=== PATIENT | male | born 1995 | race Caucasian/White ===

== ENCOUNTER 2017-03-10 12:41 | Emergency (ER) | payer MEDICAID ==
[~2017-03-10] VITALS: Ht 175.3 cm; Wt 52.2 kg
--- NOTE | 2017-03-10 12:50 | NUR ---
C/O RLQ ABDOMINAL PAIN, N/V/D X LAST NIGHT. AAO. IV LINE STARTED. CONNECTED TO MONITOR. VSS. SEEN BY . AWAITING FOR ORDER.
[2017-03-10] MEDS ORDERED: IV NS 0.9% 1,000 ML ONE (13:26)
[2017-03-10] MEDS ORDERED: MORPHINE SULFATE INJ 4 MG/ML DISP.SYRIN ONE ×2 (13:26→14:33)
[2017-03-10] MEDS ORDERED: ONDANSETRON HCL/PF 4 MG/2 ML VIAL ONE (13:27)
[2017-03-10 13:29] LABS: BASOPHILS # (AUTO) 0.8 /CMM (0.0-0.2); EOSINOPHILS # (AUTO) 0.1 /CMM (0.0-0.7); EOSINOPHILS % (AUTO) 0.5 % (0.0-6.0); HEMATOCRIT 47 % (39-51); HEMOGLOBIN 16.4 g/dL (13.5-17.5); LYMPHOCYTES # (AUTO) 0.7 /CMM (0.8-4.8); LYMPHOCYTES % (AUTO) 3.7 % (20.0-44.0); MEAN CORPUSCULAR HEMOGLOBIN 31 PG (26.0-33.0); MEAN CORPUSCULAR HGB CONC 35 g/dl (31.0-36.0); MEAN CORPUSCULAR VOLUME 88 fL (80-96); MONOCYTES # (AUTO) 1.1 /CMM (0.1-1.30); NEUTROPHILS # (AUTO) 16.2 /CMM (1.8-8.9); NEUTROPHILS % (AUTO) 85.8 % (43.0-81.0); PLATELET COUNT (AUTO) 282 /CMM (150-450); RDW COEFFICIENT OF VARIATION 11.9 (11.5-15.0); RED BLOOD CELL COUNT(AUTO) 5.32 MIL/uL (4.5-6.0); WHITE BLOOD COUNT (AUTO) 18.9 K/uL (4.3-11.0)
[2017-03-10] MEDS ORDERED: IV NS 0.9% 1,000 ML BAG IV ONE (13:30)
[2017-03-10] MEDS ORDERED: MORPHINE SULFATE INJ 2 MG/ML DISP.SYRIN IV ONE ×2 (13:30→14:30)
[2017-03-10] MEDS ORDERED: ONDANSETRON HCL/PF 4 MG/2 ML VIAL IVP ONE (13:30)
--- NOTE | 2017-03-10 13:30 | NUR ---
IV ACCESS STARTED, BLOOD DRAWN FOR LABS. PT MEDICATED ORDERED.
[2017-03-10 13:39] LABS: CALCIUM, SERUM 8.8 mg/dL (8.5-10.1); CREATININE 0.9 mg/dL (0.6-1.3); POTASSIUM 3.8 mmol/L (3.5-5.1)
[2017-03-10 13:43] LABS: PROTHROMBIN TIME 10.4 SECS (9.5-12.7)
[2017-03-10 13:44] LABS: BILIRUBIN,DIRECT 0.2 mg/dL (0.0-0.2); BILIRUBIN,TOTAL 1.9 mg/dL (0.2-1.0); TOTAL PROTEIN, SERUM 7.5 g/dL (6.4-8.2)
[2017-03-10] MEDS ORDERED: IOHEXOL-300 100 ML VIAL IV ONE (13:50)
[2017-03-10] MEDS ORDERED: IV NS 0.9% 250 ML IV ONE (13:50)
[2017-03-10] MEDS ORDERED: CT SWABBABLE VALVE TRANS SET 1 EA INFUS.SET MC ONE (13:50)
--- NOTE | 2017-03-10 15:30 | NUR ---
Patient discharged to home in stable condition. Ambulatory. Denies any pain. Denies N/V. Written and verbal after care instructions given. Patient verbalizes understanding of instruction. IV removed. Catheter intact and site benign. Pressure and 4x4 applied to site. No bleeding noted.
[2017-03-10 15:32] VITALS: BP 112/71
== END 2017-03-10 15:33 | disposition home or self-care (01) ==
LOC: ER 12:43
DX: R11.2 Nausea with vomiting, unspecified (principal); R19.7 Diarrhea, unspecified; K21.9 Gastro-esophageal reflux disease without esophagitis; K50.90 Crohn's disease, unspecified, without complications; F17.200 Nicotine dependence, unspecified, uncomplicated
CPT/HCPCS: 36415; 80048-TC; 80076-TC; 83690-TC; 85025-TC; 85730-TC; A4606; J2270; J2405; J7030; J7050; Q9967; Z7610

== ENCOUNTER 2017-08-21 20:07 | Emergency (ER) | payer MEDICAID, OTHER ==
[~2017-08-21] VITALS: Ht 175.3 cm; Wt 54.4 kg
--- NOTE | 2017-08-21 21:10 | NUR ---
Note vasiliy in EDM - 08/21/17 at 2305 by [email or web address] PT LEFT FOR CT.
--- NOTE | 2017-08-21 21:10 | NUR ---
PT PRESENTED TO THE ER WITH A C/O ABD PAIN AND BLOOD IN THE STOOL. PT AMBULATED TO BED NUMBER 4. PT IS AA&OX4
[2017-08-21 21:24] LABS: BASOPHILS # (AUTO) 0.1 /CMM (0.0-0.2); BASOPHILS % (AUTO) 0.5 % (0.0-2.0); EOSINOPHILS # (AUTO) 0.3 /CMM (0.0-0.7); HEMATOCRIT 43 % (39-51); HEMOGLOBIN 14.6 g/dL (13.5-17.5); LYMPHOCYTES # (AUTO) 1.9 /CMM (0.8-4.8); LYMPHOCYTES % (AUTO) 12.7 % (20.0-44.0); MEAN CORPUSCULAR HEMOGLOBIN 30 PG (26.0-33.0); MEAN CORPUSCULAR HGB CONC 34 g/dl (31.0-36.0); MEAN CORPUSCULAR VOLUME 89 fL (80-96); MONOCYTES # (AUTO) 1.9 /CMM (0.1-1.30); MONOCYTES % (AUTO) 12.6 % (2.0-12.0); NEUTROPHILS # (AUTO) 10.5 /CMM (1.8-8.9); NEUTROPHILS % (AUTO) 72.2 % (43.0-81.0); PLATELET COUNT (AUTO) 212 /CMM (150-450); RDW COEFFICIENT OF VARIATION 11.9 (11.5-15.0); RED BLOOD CELL COUNT(AUTO) 4.83 MIL/uL (4.5-6.0); WHITE BLOOD COUNT (AUTO) 14.7 K/uL (4.3-11.0)
[2017-08-21] MEDS ORDERED: IV NS 0.9% 1,000 ML BAG IV ONE (21:30)
[2017-08-21] MEDS ORDERED: ONDANSETRON HCL/PF 4 MG/2 ML VIAL IVP ONE (21:30)
[2017-08-21] MEDS ORDERED: HYDROMORPHONE INJ 2 MG/ML DISP.SYRIN IV ONE (21:30)
[2017-08-21] MEDS ORDERED: ONDANSETRON HCL/PF 4 MG/2 ML VIAL ONE (21:31)
[2017-08-21] MEDS ORDERED: HYDROMORPHONE INJ 2 MG/ML DISP.SYRIN ONE (21:32)
[2017-08-21 21:34] LABS: CALCIUM, SERUM 9.3 mg/dL (8.5-10.1); POTASSIUM 3.7 mmol/L (3.5-5.1)
--- NOTE | 2017-08-21 21:35 | NUR ---
PT RETURNED FROM CT.
[2017-08-21 21:38] LABS: INR 0.94 (0.87-1.13); PROTHROMBIN TIME 9.8 SECS (9.5-12.7)
[2017-08-21 21:40] LABS: ALBUMIN 3.9 g/dL (3.4-5.0); BILIRUBIN,DIRECT 0.2 mg/dL (0.0-0.2); BILIRUBIN,TOTAL 1.4 mg/dL (0.2-1.0); TOTAL PROTEIN, SERUM 7.8 g/dL (6.4-8.2)
[2017-08-21] MEDS ORDERED: IV NS 0.9% 250 ML IV ONE (22:37)
[2017-08-21] MEDS ORDERED: IOHEXOL-300 100 ML VIAL IV ONE (22:37)
--- NOTE | 2017-08-21 23:40 | NUR ---
PATIENT ASSIGNED TO TELE 112-2
--- NOTE | 2017-08-21 23:54 | NUR ---
IV removed. Catheter intact and site benign. Pressure and 4x4 applied to site. No bleeding noted. Patient discharged to home in stable condition. Written and verbal after care instructions given. Patient verbalizes understanding of instruction. PT REC'D A COPY OF ALL LABS, AND IMAGING RESULTS. PT AMBULATED OUT WITH A STEADY GAIT. VSS
[2017-08-22 00:14] VITALS: BP 110/65
== END 2017-08-21 23:54 | disposition home or self-care (01) ==
LOC: ER 20:12
DX: R10.84 Generalized abdominal pain (principal); K21.9 Gastro-esophageal reflux disease without esophagitis; K50.911 Crohn's disease, unspecified, with rectal bleeding; F17.200 Nicotine dependence, unspecified, uncomplicated
CPT/HCPCS: 36415; 74160; 80048; 80076; 83690; 85025; 85730; 96361; 96374; 96375; 99285; A4606; J1170; J2405; J7030; J7050; Q9967; Z7610

== ENCOUNTER 2017-11-19 20:06 | Emergency (ER) | payer OTHER ==
[~2017-11-19] VITALS: Ht 165.1 cm; Wt 63.5 kg
--- NOTE | 2017-11-19 20:10 | NUR ---
"MID ABD PAIN X2 HOURS", NAD NOTED, VSS, RESP EVEN AND UNLABORED, P"MID ABD PAIN X2 HOURS"T WAS PUT ON MONITOR. WAITING FOR MD WHEAT.
[2017-11-19] MEDS ORDERED: HYDROMORPHONE INJ 0.5 MG/0.5 ML SYRINGE ONE (20:48)
[2017-11-19] MEDS ORDERED: ONDANSETRON HCL/PF 4 MG/2 ML VIAL ONE (20:48)
[2017-11-19 20:51] LABS: BASOPHILS # (AUTO) 0.1 /CMM (0.0-0.2); BASOPHILS % (AUTO) 0.9 % (0.0-2.0); EOSINOPHILS # (AUTO) 0.3 /CMM (0.0-0.7); EOSINOPHILS % (AUTO) 2.9 % (0.0-6.0); HEMATOCRIT 47 % (39-51); HEMOGLOBIN 16.5 g/dL (13.5-17.5); LYMPHOCYTES # (AUTO) 3.1 /CMM (0.8-4.8); LYMPHOCYTES % (AUTO) 29.6 % (20.0-44.0); MEAN CORPUSCULAR HEMOGLOBIN 31 PG (26.0-33.0); MEAN CORPUSCULAR HGB CONC 35 g/dl (31.0-36.0); MEAN CORPUSCULAR VOLUME 89 fL (80-96); MONOCYTES # (AUTO) 0.9 /CMM (0.1-1.30); NEUTROPHILS # (AUTO) 5.9 /CMM (1.8-8.9); NEUTROPHILS % (AUTO) 57.6 % (43.0-81.0); PLATELET COUNT (AUTO) 268 /CMM (150-450); RED BLOOD CELL COUNT(AUTO) 5.27 MIL/uL (4.5-6.0); WHITE BLOOD COUNT (AUTO) 10.3 K/uL (4.3-11.0)
[2017-11-19] MEDS ORDERED: IV NS 0.9% 1,000 ML BAG IV ONE (21:00)
[2017-11-19] MEDS ORDERED: ONDANSETRON HCL/PF 4 MG/2 ML VIAL IVP ONE (21:00)
[2017-11-19] MEDS ORDERED: HYDROMORPHONE INJ 2 MG/ML DISP.SYRIN IV ONE (21:00)
[2017-11-19 21:03] LABS: CALCIUM, SERUM 9.5 mg/dL (8.5-10.1); CREATININE 0.9 mg/dL (0.6-1.3); POTASSIUM 3.6 mmol/L (3.5-5.1)
[2017-11-19 21:04] LABS: INR 0.92 (0.85-1.15)
[2017-11-19 21:08] LABS: ALBUMIN 4.4 g/dL (3.4-5.0); BILIRUBIN,DIRECT 0.1 mg/dL (0.0-0.2); BILIRUBIN,TOTAL 0.8 mg/dL (0.2-1.0); TOTAL PROTEIN, SERUM 8.9 g/dL (6.4-8.2)
[2017-11-19 21:16] LABS: APPEARANCE,URINE Clear (CLEAR); BILIRUBIN,URINE Negative (NEGATIVE); BLOOD, URINE Negative Ery/uL (NEGATIVE); COLOR,URINE Yellow (YELLOW); KETONES,URINE 15 (NEGATIVE); LEUKOCYTE ESTERASE ,URINE Negative (NEGATIVE); NITRITE, URINE Negative (NEGATIVE); PH,URINE 6.5 (5.0-8.0); PROTEIN,URINE Negative (NEGATIVE); UGLUCOSE Negative (NEGATIVE)
[2017-11-19 21:31] LABS: BACTERIA,URINE Few /HPF (None Seen); RBC,URINE NONE SEEN /HPF (0-2); SQUAMOUS EPITHELIAL CELL,UR Rare /HPF (None Seen); WBC,URINE NONE SEEN /HPF (0-3)
[2017-11-19 22:27] VITALS: BP 127/70
--- NOTE | 2017-11-19 22:40 | NUR ---
Patient discharged to home in stable condition. Written and verbal after care instructions given. Patient verbalizes understanding of instruction.IV removed. Catheter intact and site benign. Pressure and 4x4 applied to site. No bleeding noted. prescription given.
== END 2017-11-19 22:39 | disposition home or self-care (01) ==
LOC: ER 20:09
DX: R10.33 Periumbilical pain (principal); K21.9 Gastro-esophageal reflux disease without esophagitis; F17.200 Nicotine dependence, unspecified, uncomplicated; K50.90 Crohn's disease, unspecified, without complications
CPT/HCPCS: 36415; 80048; 80076; 81001; 83690; 85025; 85730; 96361; 96374; 96375; 99284; A4606; J2405; J7030; Z7610; 81000-TC

== ENCOUNTER 2018-12-14 16:00 | Inpatient (IN) | payer OTHER ==
[~2018-12-14] VITALS: Ht 177.8 cm; Wt 55.8 kg
--- NOTE | 2018-12-14 16:08 | NUR ---
C/O WORSENING RUQ AND LLQ ABDOMINAL PAIN AND DIARRHEA X 2 DAYS. HAS HX OF CROHN'S DISEASE, BUT "NEVER HAD PAIN LIKE THIS". PT IS AOX4, AMB, VSS, RR EVEN AND UNLABORED. NO ACUTE DISTRESS NOTED. SKIN INTACT AND READY FOR EVAL.
[2018-12-14] MEDS ORDERED: DICYCLOMINE HCL INJ 20 MG/2 ML AMPUL IM ONE ×2 (16:59→17:00)
[2018-12-14] MEDS ORDERED: HYDROMORPHONE 1 MG/1 ML DISP.SYRIN ONE ×2 (16:59→18:29)
[2018-12-14] MEDS ORDERED: ONDANSETRON HCL/PF 4 MG/2 ML VIAL ONE (16:59)
[2018-12-14] MEDS ORDERED: ONDANSETRON HCL/PF 4 MG/2 ML VIAL IV ONE (17:00)
[2018-12-14] MEDS ORDERED: IV NS 0.9% 1,000 ML BAG IV ONE (17:00)
[2018-12-14] MEDS ORDERED: HYDROMORPHONE 1 MG/1 ML DISP.SYRIN IV ONE ×2 (17:00→18:30)
[2018-12-14 17:32] LABS: BASOPHILS # (AUTO) 0.1 /CMM (0.0-0.2); BASOPHILS % (AUTO) 0.6 % (0.0-2.0); EOSINOPHILS % (AUTO) 1.9 % (0.0-6.0); HEMATOCRIT 44 % (39-51); HEMOGLOBIN 14.9 g/dL (13.5-17.5); LYMPHOCYTES # (AUTO) 2.7 /CMM (0.8-4.8); LYMPHOCYTES % (AUTO) 29.9 % (20.0-44.0); MEAN CORPUSCULAR HGB CONC 34 g/dl (31.0-36.0); MEAN CORPUSCULAR VOLUME 91 fL (80-96); MONOCYTES # (AUTO) 0.7 /CMM (0.1-1.30); MONOCYTES % (AUTO) 8.2 % (2.0-12.0); NEUTROPHILS # (AUTO) 5.3 /CMM (1.8-8.9); NEUTROPHILS % (AUTO) 59.4 % (43.0-81.0); PLATELET COUNT (AUTO) 264 /CMM (150-450); RED BLOOD CELL COUNT(AUTO) 4.81 MIL/uL (4.5-6.0)
[2018-12-14 17:39] LABS: CALCIUM, SERUM 9.1 mg/dL (8.5-10.1); CREATININE 0.9 mg/dL (0.6-1.3); POTASSIUM 3.9 mmol/L (3.5-5.1)
[2018-12-14 17:40] LABS: APPEARANCE,URINE Clear (CLEAR); BILIRUBIN,URINE Negative (NEGATIVE); BLOOD, URINE Negative Ery/uL (NEGATIVE); COLOR,URINE Yellow (YELLOW); KETONES,URINE Negative (NEGATIVE); LEUKOCYTE ESTERASE ,URINE Negative (NEGATIVE); NITRITE, URINE Negative (NEGATIVE); PH,URINE 8.5 (5.0-8.0); PROTEIN,URINE 100 mg/dl (NEGATIVE); UGLUCOSE Negative (NEGATIVE); UROBILINOGEN,URINE 0.2 EU/dL (0.2)
[2018-12-14 17:44] LABS: BILIRUBIN,DIRECT 0.1 mg/dL (0.0-0.2); BILIRUBIN,TOTAL 0.4 mg/dL (0.2-1.0); TOTAL PROTEIN, SERUM 7.5 g/dL (6.4-8.2)
[2018-12-14 17:57] LABS: BACTERIA,URINE Few /HPF (None Seen); RBC,URINE 0-2 /HPF (0-2); SQUAMOUS EPITHELIAL CELL,UR Few /HPF (None Seen); WBC,URINE 0-2 /HPF (0-3)
--- NOTE | 2018-12-14 17:57 | NUR ---
PT TAKEN TO CT VIA MIKE
--- NOTE | 2018-12-14 19:24 | NUR ---
PT RESTING COMFORTABLY IN BED WITH MOM AT BEDSIDE. NO COMPLAINTS AT THIS TIME. WILL CONT TO MONITOR.
[2018-12-14] MEDS ORDERED: ONDANSETRON HCL/PF 4 MG/2 ML VIAL IVP PRN (19:30)
[2018-12-14] MEDS ORDERED: MAG HYDROX/AL HYDROX/SIMETH 30 ML UDC PO PRN (19:30)
[2018-12-14] MEDS ORDERED: Z GUARD REMEDY 2 OZ OINT TP PRN (19:30)
[2018-12-14] MEDS ORDERED: MORPHINE SULFATE INJ 2 MG/ML DISP.SYRIN IV PRN (19:30)
[2018-12-14] MEDS ORDERED: ACETAMINOPHEN 325 MG TABLET PO PRN (19:30)
[2018-12-14] MEDS ORDERED: MAGNESIUM HYDROXIDE 30 ML UDC PO PRN (19:30)
--- NOTE | 2018-12-14 20:13 | NUR ---
REPORT GIVEN TO MEI CARRINGTON FOR 315-2 MS FOR EDUARDO
--- NOTE | 2018-12-14 20:25 | NUR ---
PT TRANSFERRED TO FLOOR VIA WC
--- NOTE | 2018-12-14 20:26 | NUR ---
MS SITE MONITOR NOTES Received patient from ER via wheelchair accompanied by 1 ER staff. Admitted to [facility] 315-1 due to Crohn's Flare under the service of NANCIE Chung. Assisted patient to bed comfortably. Patient preferred to remain on his casual clothes. Patient refused skin assessment at this time, claimed he has no skin issues. Kept on NPO as ordered. Patient refused NGT insertion at this time, no abdominal distention, no N/V noted at this time. NANCIE Chung notified, no order made at this time. Initiated IVF as ordered. Belongings inventory completed by DOMINICK Macias. Patient noted with severe LLQ abdominal pain 10/10 as claimed, patient noted guarding. Administered Morphine as ordered. Kept on bed comfortably. Call light at bed side. Inquiries answered with satisfaction. Will continue to monitor accordingly.
[2018-12-14 20:30] VITALS: BP 124/61
[2018-12-14] MEDS: IV D5/0.45 NACL 1,000 ML IV PRN (20:38)
--- NOTE | 2018-12-14 22:00 | NUR ---
MS RN NOTES Patient claimed generalized itchiness. No SOB and redness noted at this time. Notified TEACHER OF THE DEAF/HARD OF HEARING Cha with orders noted and carried. Patient seend by Dr. Albrecht at this time, orders noted and carried out. Will continue to monitor patient accordingly.
--- NOTE | 2018-12-14 22:15 | NUR ---
Per RN- Pt. refused NG tube.
[2018-12-14] MEDS ORDERED: diphenhydrAMINE HCL 25 MG CAPSULE PO ONE (22:30)
[2018-12-14] MEDS ORDERED: HYDROMORPHONE INJ 0.5 MG/0.5 ML SYRINGE IV PRN ×2 (22:30→23:00)
[2018-12-14] MEDS ORDERED: IBUPROFEN 800 MG TABLET PO PRN (23:00)
[2018-12-14] MEDS ORDERED: predniSONE 20 MG TABLET PO SCH (23:00)
[2018-12-14] MEDS ORDERED: METRONIDAZOLE 500MG/ NS 100ML 100 ML IV ONE (23:14)
[2018-12-14] MEDS ORDERED: ACETAMINOPHEN 650 MG/20.3 ML UDC NG SCH (23:15)
[2018-12-14] MEDS ORDERED: IBUPROFEN 800 MG TABLET PO SCH (23:15)
[2018-12-14] MEDS: predniSONE 20 MG TABLET PO SCH (23:22)
[2018-12-14] MEDS: GABAPENTIN 300 MG CAPSULE PO SCH (23:23)
[2018-12-14] MEDS ORDERED: CIPROFLOXACIN IV RTU 200 ML IV ONE (23:25)
[2018-12-14] MEDS: METRONIDAZOLE 500MG/ NS 100ML 500 MG in PREMIX 1 EA IV SCH (23:25)
[2018-12-14] MEDS: CIPROFLOXACIN IV RTU 400 MG in PREMIX 1 EA IV SCH (23:33)
[2018-12-14] MEDS: IBUPROFEN 400 MG TABLET PO SCH (23:41)
[2018-12-15] MEDS ORDERED: IBUPROFEN 400 MG TABLET PO SCH
[2018-12-15] MEDS ORDERED: HYDROMORPHONE 1 MG/1 ML DISP.SYRIN ONE (02:29)
[2018-12-15] MEDS ORDERED: METRONIDAZOLE 500MG/ NS 100ML 100 ML IV ONE (03:54)
[2018-12-15] MEDS: METRONIDAZOLE 500MG/ NS 100ML 500 MG in PREMIX 1 EA IV SCH ×3 (04:06→21:00)
[2018-12-15] MEDS: IBUPROFEN 400 MG TABLET PO SCH (04:35)
[2018-12-15] MEDS: predniSONE 20 MG TABLET PO SCH (04:36)
[2018-12-15] MEDS: GABAPENTIN 300 MG CAPSULE PO SCH ×3 (04:36→21:02)
[2018-12-15] MEDS ORDERED: ACETAMINOPHEN 325 MG TABLET PO SCH (05:00)
[2018-12-15] MEDS ORDERED: ACETAMINOPHEN 325 MG TABLET PO PRN (05:00)
[2018-12-15] MEDS: ACETAMINOPHEN 325 MG TABLET PO SCH ×3 (05:14→21:02)
--- NOTE | 2018-12-15 05:53 | NUR ---
MS RN NOTES Per CN, MRSA swab not done. Collected specimen sample accordingly. photo technologist on the floor notified specimen ready for pick up truck driver.
--- NOTE | 2018-12-15 06:43 | NUR ---
MS RN CLOSING NOTES Patient on bed intermittently asleep. Claimed pain is manageable with medications. All due meds given as ordered, monitored closely for ASE. All nursing needs attended, no new complaints made. Afebrile the whole shift, pt claimed no episode of diarrhea noted since admission. Kept on NPO except meds. Kept bed low and locked, call light at bedside. Endorsed to the next shift.
--- NOTE | 2018-12-15 07:10 | NUR ---
RN OPENING NOTES PATIENT IN STABLE CONDITION. A/OX3, ABLE TO MAKE NEEDS KNOWN. NOT IN ANY FORM OF DISTRESS, NO SOB. ABDOMINAL PAIN IS TOLERABLE AT THIS TIME, OFFERED PAIN MEDS BUT PATIENT SAID "ILL CALL YOU WHEN I NEED IT". IV ACCESS INTACT AND PATENT. KEPT PATIENT SAFE AND COMFORTABLE. BED IN LOW/LOCKED POSITION, SIDERAILS UPX2, CALL LIGHT IN REACH. WILL CONTINUE TO MONITOR ACCORDINGLY.
[2018-12-15 07:32] LABS: BASOPHILS % (AUTO) 0.1 % (0.0-2.0); EOSINOPHILS % (AUTO) 0.7 % (0.0-6.0); HEMATOCRIT 43 % (39-51); LYMPHOCYTES # (AUTO) 1.2 /CMM (0.8-4.8); LYMPHOCYTES % (AUTO) 14.7 % (20.0-44.0); MEAN CORPUSCULAR HGB CONC 35 g/dl (31.0-36.0); MEAN CORPUSCULAR VOLUME 91 fL (80-96); MONOCYTES # (AUTO) 0.3 /CMM (0.1-1.30); MONOCYTES % (AUTO) 3.6 % (2.0-12.0); NEUTROPHILS # (AUTO) 6.8 /CMM (1.8-8.9); NEUTROPHILS % (AUTO) 80.9 % (43.0-81.0); PLATELET COUNT (AUTO) 241 /CMM (150-450); RED BLOOD CELL COUNT(AUTO) 4.74 MIL/uL (4.5-6.0); WHITE BLOOD COUNT (AUTO) 8.4 K/uL (4.3-11.0)
[2018-12-15 07:38] LABS: CALCIUM, SERUM 8.8 mg/dL (8.5-10.1); CREATININE 0.8 mg/dL (0.6-1.3); MAGNESIUM 2.2 mg/dL (1.8-2.4); PHOSPHORUS 3.4 mg/dL (2.5-4.9); POTASSIUM 4.7 mmol/L (3.5-5.1)
[2018-12-15 07:43] LABS: THYROID STIMULATING HORMONE 1.149 uIU/mL (0.358-3.74)
[2018-12-15 08:00] VITALS: BP 106/59
[2018-12-15] MEDS: HYDROMORPHONE 1 MG/1 ML DISP.SYRIN IV PRN ×5 (08:22→22:13)
[2018-12-15] MEDS: ONDANSETRON HCL/PF 4 MG/2 ML VIAL IV PRN ×3 (08:27→23:16)
[2018-12-15] MEDS: NICOTINE PATCH (14MG) 14 MG PATCH.TD24 TD SCH (08:29)
[2018-12-15] MEDS: PANTOPRAZOLE 40 MG VIAL IV SCH (08:32)
[2018-12-15] MEDS: CIPROFLOXACIN IV RTU 400 MG in PREMIX 1 EA IV SCH ×2 (08:32→22:13)
[2018-12-15] MEDS ORDERED: BISACODYL (5 MG) 5 MG TABLET.DR PO PRN (10:30)
[2018-12-15] MEDS ORDERED: DIATR MEGLU/DIATRIZOATE SODIUM 120 ML BOTTLE (GASTROGRAPHIN) ONE (10:37)
[2018-12-15] MEDS: DOCUSATE SODIUM 250 MG CAPSULE PO SCH ×2 (10:49→17:22)
[2018-12-15] MEDS: POLYETHYLENE GLYCOL 3350 17 GM POWD.PACK PO SCH ×2 (10:49→21:01)
[2018-12-15] MEDS ORDERED: BARIUM SULFATE 98% 135 ML SUSP.RECON PO ONE (11:06)
[2018-12-15] MEDS: DICYCLOMINE HCL 10 MG CAPSULE PO SCH ×3 (12:33→23:08)
[2018-12-15 16:00] VITALS: BP 108/69
[2018-12-15] MEDS: IV D5/0.45 NACL 1,000 ML IV PRN (18:33)
--- NOTE | 2018-12-15 19:35 | NUR ---
RN CLOSING NOTES PATIENT IN STABLE CONDITION. ALL NEEDS ATTENDED AND PROVIDED. ALL DUE MEDICATIONS ADMINISTERED ORDERED. KEPT PATIENT SAFE AND COMFORTABLE. BED IN LOW/LOCKED POSITON, SIDERAIL UP X 2, CALL LIGHT IN REACH. ENDORSED TO NIGHT RN GIULIANA CLARK.
--- NOTE | 2018-12-15 19:35 | NUR ---
MS RN RECEIVE PT IN BED. A/O X 3. RESPIRATIONS EVEN AND UNLABORED, NO SOB NOTED, NO DISTRESS, SAFETY MEASURES IN PLACE. WILL CONTINUE TO MONITOR.
--- NOTE | 2018-12-15 19:49 | NUR ---
paged tano l[facility] pt requesting nausea meds per Jillian Langley give Reglan 5 mg IV q6 prn for nausea and vomiting read back and verified orders noted and carried out
[2018-12-15 20:00] VITALS: BP 122/76
[2018-12-15] MEDS: METOCLOPRAMIDE HCL 10 MG/2 ML VIAL IV PRN (20:06)
--- NOTE | 2018-12-16 01:42 | NUR ---
PAGED AND LEFT A MESSAGE TO JESS DONNELLY ABOUT PT'S SMALL BOWEL TROUGH RESULTS. AWAITING ORDERS.
[2018-12-16] MEDS: HYDROMORPHONE 1 MG/1 ML DISP.SYRIN IV PRN ×3 (01:49→08:46)
[2018-12-16] MEDS: DICYCLOMINE HCL 10 MG CAPSULE PO SCH ×2 (05:16→11:24)
[2018-12-16] MEDS: ACETAMINOPHEN 325 MG TABLET PO SCH ×2 (05:16→12:31)
[2018-12-16] MEDS: GABAPENTIN 300 MG CAPSULE PO SCH ×2 (05:16→12:31)
[2018-12-16] MEDS: METRONIDAZOLE 500MG/ NS 100ML 500 MG in PREMIX 1 EA IV SCH ×3 (05:16→12:35)
[2018-12-16] MEDS: METOCLOPRAMIDE HCL 10 MG/2 ML VIAL IV PRN (05:27)
--- NOTE | 2018-12-16 06:36 | NUR ---
RN CLOSING NOTE ASLEEP AND EASILY AWAKEN. RESPIRATIONS EVEN AND UNLABORED. NOT IN DISTRESS, STABLE. NEEDS ATTENDED AND ANTICIPATED, KEPT CLEAN AND DRY AND COMFORT. NURSING CARE RENDERED, SAFETY MEASURES IN PLACE, BED IN LOW LOCKED POSITION, CALL LIGHT WITHIN EASY REACH. ENDORSE TO NEXT SHIFT CONTINUITY OF CARE.
--- NOTE | 2018-12-16 07:36 | NUR ---
MS RN OPENING NOTE RECEIVED PT IN BED, RESTING WITH EYES CLOSED AND EASILY AROUSABLE. PT IS A/O X4, DENIES CHEST PAIN, SOB. PT STATES HE FEELS NAUSEA AND HAS ABD PAIN DESPITE REGLAN AND DILAUDID ADMINISTRATION AT APPROXIMATELY 0530 FROM SURGICAL FIRST ASSISTANT NURSE. PT IS ALSO REQUESTING A DIET ORDER SO THAT HE CAN EAT. INFORMED PT THAT THE NURSE WILL REVIEW PRN MEDICATIONS AND CONTACT GI TEAM REGARDING DIET ORDER. PT VERBALIZED AGREEMENT AND UNDERSTANDING. RIGHT FA #22G IV IS INFUSING ORDERED WITHOUT REDNESS OR SWELLING. ALL NEEDS ATTENDED TO. BED IS LOCKED AND IN LOWEST POSITION, SIDE RAILS UP X2, CALL LIGHT AND POSSESSIONS WITHIN REACH.
[2018-12-16 08:00] VITALS: BP 114/67
[2018-12-16 08:00] LABS: BASOPHILS % (AUTO) 0.3 % (0.0-2.0); EOSINOPHILS % (AUTO) 1.5 % (0.0-6.0); HEMATOCRIT 42 % (39-51); HEMOGLOBIN 14.5 g/dL (13.5-17.5); LYMPHOCYTES # (AUTO) 2.6 /CMM (0.8-4.8); MEAN CORPUSCULAR HGB CONC 35 g/dl (31.0-36.0); MEAN CORPUSCULAR VOLUME 90 fL (80-96); MONOCYTES # (AUTO) 0.9 /CMM (0.1-1.30); MONOCYTES % (AUTO) 11.2 % (2.0-12.0); NEUTROPHILS # (AUTO) 4.3 /CMM (1.8-8.9); PLATELET COUNT (AUTO) 231 /CMM (150-450); RED BLOOD CELL COUNT(AUTO) 4.66 MIL/uL (4.5-6.0)
--- NOTE | 2018-12-16 08:02 | NUR ---
MS RN NOTE CONTACTED JESS Coker NP REGARDING DIET ORDER. AWAITING RESPONSE.
[2018-12-16 08:21] LABS: CALCIUM, SERUM 8.8 mg/dL (8.5-10.1); MAGNESIUM 1.9 mg/dL (1.8-2.4); PHOSPHORUS 4.8 mg/dL (2.5-4.9); POTASSIUM 3.4 mmol/L (3.5-5.1)
[2018-12-16] MEDS: DOCUSATE SODIUM 250 MG CAPSULE PO SCH (08:44)
[2018-12-16] MEDS: NICOTINE PATCH (14MG) 14 MG PATCH.TD24 TD SCH (08:44)
[2018-12-16] MEDS: PANTOPRAZOLE 40 MG VIAL IV SCH (08:44)
[2018-12-16] MEDS: CIPROFLOXACIN IV RTU 400 MG in PREMIX 1 EA IV SCH (08:45)
[2018-12-16] MEDS: ONDANSETRON HCL/PF 4 MG/2 ML VIAL IV PRN (08:56)
[2018-12-16] MEDS ORDERED: predniSONE 20 MG TABLET PO SCH (09:00)
[2018-12-16] MEDS ORDERED: POTASSIUM CHLORIDE 20 MEQ TAB.PRT.SR PO SCH (11:00)
--- NOTE | 2018-12-16 13:00 | NUR ---
MS ELECTRICIAN SOUND NOTE PT DISCHARGE HOME VIA PRIVATE CAR IN MEDICALLY STABLE CONDITION. ACCOMPANIED BY MOTHER PERLA. PT IS A/OX4, DENIES CHEST PAIN, SOB, N/V. BREATHING IS EVEN AND UNLABORED ON ROOM AIR. RIGHT FA PERIPHERAL IV REMOVED WITH CATHETER TIP INTACT. DISCHARGE PAPERWORK AND EDUCATION PROVIDED PER PROTOCOL. INFORMED PT AND MOTHER TO CALL 911 OR RETURN TO THE NEAREST ER FOR CHEST PAIN, SOB, UNILATERAL CALF SWELLING, TEMPERATURE THAT DOES NOT GO DOWN WITH TYLENOL ADMINISTRATION, OR REOCCURRENCE OF CHIEF COMPLAINT. DISCUSSED DR DISCHARGE RECOMMENDATION TO FOLLOW UP WITH PRIMARY CARE PROVIDER AND TAKE MEDICATIONS PRESCRIBED. PER PT HE HAS A FOLLOW UP APPOINTMENT WITH HIS PRIMARY CARE PROVIDER SCHEDULED FOR THIS COMING THURSDAY, December. PROVIDED PRESCRIPTION FOR MEDICATIONS AND DISCUSSED ADMINISTRATION, SIDE EFFECTS, INTERACTIONS PER PROTOCOL. PT AND MOTHER VERBALIZED UNDERSTANDING. ALL BELONGINGS ACCOUNTED FOR AND BELONGINGS LIST SIGNED AND PLACED IN CHART. THE NURSE STORE MANAGER ACCOMPANIED THE PT AND MOTHER TO THE MAIN LOBBY WITHOUT INCIDENT.
== END 2018-12-16 13:00 | disposition home or self-care (01) | DRG 245 ==
LOC: ER 16:01 → MED 20:04
PROVIDERS: ADMIT Registered Nurse; ATTEND Registered Nurse
DX: K50.90 Crohn's disease, unspecified, without complications (principal); K56.7 Ileus, unspecified; F17.200 Nicotine dependence, unspecified, uncomplicated; K21.9 Gastro-esophageal reflux disease without esophagitis; I10 Essential (primary) hypertension
CPT/HCPCS: 36415; 74250-TC; 76700-TC; 80048-TC; 80061-TC; 80076-TC; 81000-TC; 83735-TC; 84100-TC; 84443-TC; 85025-TC; 85652-TC; 85730-TC; 86140-TC; 87081-TC; A4216; C9113; G0378; J0500; J0744; J1170; J2270; J2405; J2765; J3490; J7030; Q0163; Q9963

== ENCOUNTER 2019-04-17 11:15 | Emergency (ER) | payer OTHER ==
[~2019-04-17] VITALS: Ht 177.8 cm; Wt 51.7 kg
--- NOTE | 2019-04-17 11:24 | NUR ---
BIB DAD C/O NAUSEA, VOMITING AND ABDOMINAL PAIN SINCE LAST NIGHT. STATES HE HAD BLOOD IN VOMIT, ALSO HAVING MIGRAINE AND SOME DIARRHEA. VOMIT X 3 TODAY, UNABLE TO CARLA FOOD/FLUIDS. C/O GENERALIZED BODY PAIN. NAD NOTED. AOX4, VSS, RR EVEN AND UNLABORED ON RA. DAD AT BEDSIDE. READY FOR EVAL.
[2019-04-17] MEDS ORDERED: HYDROMORPHONE 1 MG/1 ML DISP.SYRIN ONE (11:35)
[2019-04-17] MEDS ORDERED: ONDANSETRON HCL/PF 4 MG/2 ML VIAL ONE (11:35)
[2019-04-17 11:47] LABS: BASOPHILS % (AUTO) 0.2 % (0.0-2.0); HEMATOCRIT 43 % (39-51); HEMOGLOBIN 14.5 g/dL (13.5-17.5); LYMPHOCYTES # (AUTO) 0.7 /CMM (0.8-4.8); LYMPHOCYTES % (AUTO) 3.4 % (20.0-44.0); MEAN CORPUSCULAR HGB CONC 34 g/dl (31.0-36.0); MEAN CORPUSCULAR VOLUME 91 fL (80-96); NEUTROPHILS # (AUTO) 19.1 /CMM (1.8-8.9); NEUTROPHILS % (AUTO) 87.4 % (43.0-81.0); PLATELET COUNT (AUTO) 206 /CMM (150-450); RED BLOOD CELL COUNT(AUTO) 4.67 MIL/uL (4.5-6.0); WHITE BLOOD COUNT (AUTO) 21.8 K/uL (4.3-11.0)
[2019-04-17 11:54] LABS: CALCIUM, SERUM 9.2 mg/dL (8.5-10.1); CREATININE 0.9 mg/dL (0.6-1.3); POTASSIUM 3.8 mmol/L (3.5-5.1)
--- NOTE | 2019-04-17 11:55 | NUR ---
IV ACCESS OBTAINED, BLOOD DRAWN, MEDS GIVEN AND IVF INFUSING. WILL CONT TO MONITOR.
[2019-04-17 12:00] LABS: ALBUMIN 4.3 g/dL (3.4-5.0); BILIRUBIN,DIRECT 0.2 mg/dL (0.0-0.2); BILIRUBIN,TOTAL 1.3 mg/dL (0.2-1.0); TOTAL PROTEIN, SERUM 8.1 g/dL (6.4-8.2)
[2019-04-17] MEDS ORDERED: ONDANSETRON HCL/PF 4 MG/2 ML VIAL IVP ONE (12:00)
[2019-04-17] MEDS ORDERED: IV NS 0.9% 1,000 ML BAG IV ONE (12:00)
[2019-04-17] MEDS ORDERED: HYDROMORPHONE INJ 2 MG/ML DISP.SYRIN IV ONE (12:00)
--- NOTE | 2019-04-17 12:13 | NUR ---
PT ON MONITOR. URINE COLLECTED AND SENT TO STAT LAB
[2019-04-17] MEDS ORDERED: CT SWABBABLE VALVE TRANS SET 1 EA INFUS.SET MC ONE (12:15)
[2019-04-17] MEDS ORDERED: IOHEXOL-300 100 ML VIAL IV ONE (12:15)
[2019-04-17] MEDS ORDERED: IV NS 0.9% 250 ML IV ONE (12:16)
--- NOTE | 2019-04-17 12:21 | NUR ---
PT TAKEN TO RADIOLOGY VIA
[2019-04-17 12:22] LABS: APPEARANCE,URINE Clear (CLEAR); BILIRUBIN,URINE SMALL (NEGATIVE); BLOOD, URINE Negative Ery/uL (NEGATIVE); COLOR,URINE Yellow (YELLOW); KETONES,URINE >=160 (NEGATIVE); LEUKOCYTE ESTERASE ,URINE Negative (NEGATIVE); NITRITE, URINE Negative (NEGATIVE); PROTEIN,URINE 100 mg/dl (NEGATIVE); UGLUCOSE Negative (NEGATIVE)
[2019-04-17 12:23] LABS: BACTERIA,URINE Rare /HPF (None Seen); RBC,URINE 0-2 /HPF (0-2); SQUAMOUS EPITHELIAL CELL,UR Few /HPF (None Seen); WBC,URINE 0-2 /HPF (0-3)
--- NOTE | 2019-04-17 12:32 | NUR ---
PT BACK FROM RADIOLOGY. CARLA WELL. WILL CONT TO MONITOR.
--- NOTE | 2019-04-17 13:16 | NUR ---
IV removed. Catheter intact and site benign. Pressure and 4x4 applied to site. No bleeding noted.Patient discharged to home in stable condition. Written and verbal after care instructions given. Patient verbalizes understanding of instruction.
[2019-04-17 13:19] VITALS: BP 114/70
[2019-04-17] MEDS ORDERED: HYDROMORPHONE INJ 0.5 MG/0.5 ML SYRINGE IV ONE (13:30)
== END 2019-04-17 13:20 | disposition home or self-care (01) ==
LOC: ER 11:16
DX: R10.84 Generalized abdominal pain (principal); R11.2 Nausea with vomiting, unspecified; K21.9 Gastro-esophageal reflux disease without esophagitis; F17.200 Nicotine dependence, unspecified, uncomplicated; Z60.2 Problems related to living alone; Z88.6 Allergy status to analgesic agent
CPT/HCPCS: 36415; 74177; 80048; 80076; 81001; 83690; 85025; 96361; 96374; 96375; 99284; J1170; J2405; J7030; J7050; Q9967; 81000-TC

== ENCOUNTER 2019-04-17 19:31 | Emergency (ER) | payer OTHER ==
[~2019-04-17] VITALS: Ht 177.8 cm; Wt 52.2 kg
--- NOTE | 2019-04-17 20:02 | NUR ---
BIBF. C/O "ABD PAIN X2 DAYS, +N/V +DIARRHEA, SEEN TODAY AM HERE. GIVEN TYLENOL, NOT HELPING FEVER" AOX4. AMBULATORY. PT VSS.
[2019-04-17 20:10] LABS: APPEARANCE,URINE Clear (CLEAR); BILIRUBIN,URINE SMALL (NEGATIVE); BLOOD, URINE Trace-intact Ery/uL (NEGATIVE); COLOR,URINE Yellow (YELLOW); KETONES,URINE >=160 (NEGATIVE); LEUKOCYTE ESTERASE ,URINE Negative (NEGATIVE); NITRITE, URINE Negative (NEGATIVE); PROTEIN,URINE 100 mg/dl (NEGATIVE); UGLUCOSE Negative (NEGATIVE); UROBILINOGEN,URINE 0.2 EU/dL (0.2)
[2019-04-17] MEDS ORDERED: ONDANSETRON HCL/PF 4 MG/2 ML VIAL ONE (20:14)
[2019-04-17 20:17] LABS: BASOPHILS % (AUTO) 0.1 % (0.0-2.0); EOSINOPHILS % (AUTO) 0.1 % (0.0-6.0); HEMATOCRIT 42 % (39-51); HEMOGLOBIN 14.1 g/dL (13.5-17.5); LYMPHOCYTES # (AUTO) 0.8 /CMM (0.8-4.8); LYMPHOCYTES % (AUTO) 4.4 % (20.0-44.0); MEAN CORPUSCULAR HGB CONC 34 g/dl (31.0-36.0); MEAN CORPUSCULAR VOLUME 93 fL (80-96); MONOCYTES # (AUTO) 2.1 /CMM (0.1-1.30); MONOCYTES % (AUTO) 11.2 % (2.0-12.0); NEUTROPHILS # (AUTO) 15.7 /CMM (1.8-8.9); NEUTROPHILS % (AUTO) 84.2 % (43.0-81.0); PLATELET COUNT (AUTO) 203 /CMM (150-450); RED BLOOD CELL COUNT(AUTO) 4.51 MIL/uL (4.5-6.0); WHITE BLOOD COUNT (AUTO) 18.7 K/uL (4.3-11.0)
[2019-04-17] MEDS ORDERED: HYDROMORPHONE 1 MG/1 ML DISP.SYRIN ONE ×2 (20:21→21:53)
[2019-04-17 20:24] LABS: BACTERIA,URINE Few /HPF (None Seen); RBC,URINE 0-2 /HPF (0-2); SQUAMOUS EPITHELIAL CELL,UR Few /HPF (None Seen); WBC,URINE 0-2 /HPF (0-3)
[2019-04-17 20:26] LABS: CALCIUM, SERUM 8.9 mg/dL (8.5-10.1); POTASSIUM 3.6 mmol/L (3.5-5.1)
[2019-04-17 20:32] LABS: ALBUMIN 3.9 g/dL (3.4-5.0); BILIRUBIN,DIRECT 0.2 mg/dL (0.0-0.2); BILIRUBIN,TOTAL 1.3 mg/dL (0.2-1.0); TOTAL PROTEIN, SERUM 7.6 g/dL (6.4-8.2)
[2019-04-17] MEDS: IV NS 0.9% 1,000 ML BAG IV ONE (20:33)
[2019-04-17] MEDS: ONDANSETRON HCL/PF 4 MG/2 ML VIAL IVP ONE (20:33)
[2019-04-17] MEDS: HYDROMORPHONE 1 MG/1 ML DISP.SYRIN IV ONE (20:34)
[2019-04-17] MEDS ORDERED: DEXAMETHASONE SOD PHOSPHATE 10 MG/ML VIAL ONE (21:53)
[2019-04-17] MEDS ORDERED: ACETAMINOPHEN ES 500 MG TABLET ONE (21:53)
[2019-04-17] MEDS: HYDROMORPHONE INJ 2 MG/ML DISP.SYRIN IV ONE (22:01)
[2019-04-17] MEDS: DEXAMETHASONE SOD PHOSPHATE 10 MG/ML VIAL IV ONE (22:01)
[2019-04-17] MEDS: ACETAMINOPHEN ES 500 MG TABLET PO ONE (22:01)
[2019-04-17] MEDS ORDERED: IBUPROFEN 600 MG TABLET PO ONE (22:29)
[2019-04-17] MEDS: IBUPROFEN 600 MG TABLET PO ONE (22:55)
[2019-04-17 22:56] VITALS: BP 129/81
== END 2019-04-17 22:59 | disposition home or self-care (01) ==
LOC: ER 19:32
DX: J02.0 Streptococcal pharyngitis (principal); R11.2 Nausea with vomiting, unspecified; R10.84 Generalized abdominal pain; R10.11 Right upper quadrant pain; K21.9 Gastro-esophageal reflux disease without esophagitis; F17.200 Nicotine dependence, unspecified, uncomplicated; Z88.6 Allergy status to analgesic agent; Z60.2 Problems related to living alone
CPT/HCPCS: 36415; 80048; 80076; 81001; 83690; 85025; 85652; 86140; 87070; 87880; 96361; 96374; 96375; 96376; 99283; J1100; J1170 ×2; J2405; J7030; 81000-TC; 86403-TC

== ENCOUNTER 2019-11-07 10:33 | Emergency (ER) | payer OTHER ==
[~2019-11-07] VITALS: Ht 177.8 cm; Wt 54.4 kg
--- NOTE | 2019-11-07 11:00 | NUR ---
patient came in to the er c/o ruq abdominal pain r/t r flank since last night. nausea, vomited x 1 today. On room air, breathing evenly and unlabored. connected to the monitor and pulse ox. kept comfortable will continue to monitor accordingly.
--- NOTE | 2019-11-07 11:26 | NUR ---
DR TIAN AT BEDSIDE FOR EVAL.
[2019-11-07] MEDS ORDERED: HYDROMORPHONE 1 MG/1 ML DISP.SYRIN ONE ×2 (11:29→13:26)
[2019-11-07] MEDS ORDERED: ONDANSETRON HCL/PF 4 MG/2 ML VIAL ONE (11:29)
[2019-11-07] MEDS ORDERED: HYDROMORPHONE INJ 0.5 MG/0.5 ML SYRINGE IV ONE ×2 (11:30→13:30)
[2019-11-07] MEDS ORDERED: ONDANSETRON HCL/PF 4 MG/2 ML VIAL IVP ONE (11:30)
[2019-11-07] MEDS ORDERED: IV NS 0.9% 1,000 ML BAG IV ONE (11:30)
[2019-11-07 11:39] LABS: BASOPHILS % (AUTO) 0.3 % (0.0-2.0); EOSINOPHILS % (AUTO) 1.6 % (0.0-6.0); HEMATOCRIT 45 % (39-51); HEMOGLOBIN 15.4 g/dL (13.5-17.5); LYMPHOCYTES % (AUTO) 26.9 % (20.0-44.0); MEAN CORPUSCULAR HGB CONC 34 g/dl (31.0-36.0); MEAN CORPUSCULAR VOLUME 91 fL (80-96); MONOCYTES # (AUTO) 0.9 /CMM (0.1-1.30); MONOCYTES % (AUTO) 11.5 % (2.0-12.0); NEUTROPHILS # (AUTO) 4.5 /CMM (1.8-8.9); NEUTROPHILS % (AUTO) 59.7 % (43.0-81.0); PLATELET COUNT (AUTO) 268 /CMM (150-450); RED BLOOD CELL COUNT(AUTO) 4.96 MIL/uL (4.5-6.0); WHITE BLOOD COUNT (AUTO) 7.6 K/uL (4.3-11.0)
[2019-11-07 11:53] LABS: CALCIUM, SERUM 9.2 mg/dL (8.5-10.1); CREATININE 0.7 mg/dL (0.6-1.3); POTASSIUM 3.7 mmol/L (3.5-5.1)
[2019-11-07 12:08] LABS: ALBUMIN 4.4 g/dL (3.4-5.0); BILIRUBIN,DIRECT 0.1 mg/dL (0.0-0.2); BILIRUBIN,TOTAL 0.9 mg/dL (0.2-1.0)
[2019-11-07] MEDS ORDERED: KETOROLAC TROMETHAMINE INJ 30 MG/ML VIAL ONE (13:25)
[2019-11-07] MEDS ORDERED: KETOROLAC TROMETHAMINE INJ 30 MG/ML VIAL IV ONE (13:30)
[2019-11-07 13:37] LABS: APPEARANCE,URINE Clear (CLEAR); BILIRUBIN,URINE Negative (NEGATIVE); BLOOD, URINE Negative Ery/uL (NEGATIVE); COLOR,URINE Yellow (YELLOW); KETONES,URINE Negative (NEGATIVE); LEUKOCYTE ESTERASE ,URINE Negative (NEGATIVE); NITRITE, URINE Negative (NEGATIVE); PROTEIN,URINE Negative (NEGATIVE); UGLUCOSE Negative (NEGATIVE); UROBILINOGEN,URINE 0.2 EU/dL (0.2)
[2019-11-07 14:39] VITALS: BP 132/76
--- NOTE | 2019-11-07 14:39 | NUR ---
Patient discharged to home in stable condition. Written and verbal after care instructions given. Patient verbalizes understanding of instruction.IV removed. Catheter intact and site benign. Pressure and 4x4 applied to site. No bleeding noted.
== END 2019-11-07 14:40 | disposition home or self-care (01) ==
LOC: ER 10:39
DX: K50.90 Crohn's disease, unspecified, without complications (principal); R10.31 Right lower quadrant pain; K21.9 Gastro-esophageal reflux disease without esophagitis; F17.200 Nicotine dependence, unspecified, uncomplicated; R11.10 Vomiting, unspecified; Z88.6 Allergy status to analgesic agent; Z60.2 Problems related to living alone
CPT/HCPCS: 36415; 74176; 80048; 80076; 81001; 83690; 85025; 96361; 96374; 96375; 96376; 99284; J1885; J2405; J7030; 81000-TC; J1170

== ENCOUNTER 2020-07-17 12:55 | Emergency (ER) | payer OTHER ==
[~2020-07-17] VITALS: Ht 177.8 cm; Wt 56.7 kg
[2020-07-17 13:06] VITALS: BP 117/72
--- NOTE | 2020-07-17 13:26 | NUR ---
Patient discharged to home in stable condition. Written and verbal after care instructions given. Patient verbalizes understanding of instruction.
== END 2020-07-17 13:28 | disposition home or self-care (01) ==
LOC: ER 12:58
DX: K11.5 Sialolithiasis (principal); K21.9 Gastro-esophageal reflux disease without esophagitis; F17.200 Nicotine dependence, unspecified, uncomplicated; Z88.6 Allergy status to analgesic agent; Z60.2 Problems related to living alone

== ENCOUNTER 2020-09-15 19:40 | Emergency (ER) | payer OTHER ==
[~2020-09-15] VITALS: Ht 177.8 cm; Wt 59.0 kg
--- NOTE | 2020-09-15 21:41 | NUR ---
TO ER BED 3 AMBULATORY.
--- NOTE | 2020-09-15 21:50 | NUR ---
PT BIBSELF C/O SWELLING ON NECK WHILE EATING PT STATES HE HAS A HISTORY OF SALIVARY STONE CAUSING DIFFICULTY SWALLOWING. PT O2 SAT 100% ROOM AIR. PT ALSO C/O ABDOMINAL CRAMPING WITH NAUSEA, VOMITTING, DIARRHEA. PT AAOX4. AMBULATORY WITH STEADY GAIT. VITAL SIGNS STABLE. NO ACUTE DISTRESS NOTED AT THIS TIME. WILL CONTINUE TO MONITOR
[2020-09-15] MEDS ORDERED: ONDANSETRON HCL/PF 4 MG/2 ML VIAL ONE (22:10)
[2020-09-15] MEDS ORDERED: KETOROLAC TROMETHAMINE INJ 30 MG/ML VIAL ONE (22:10)
--- NOTE | 2020-09-15 22:14 | NUR ---
IV INITIATED RAC 18G. LABS DRAWN FROM SITE. BUSINESS DEVELOPMENT EXECUTIVE AT BEDSIDE FOR COLLECTION. IV INTACT AND PATENT, PLACED ON SALINE LOCK
[2020-09-15 22:18] LABS: BASOPHILS # (AUTO) 0.1 /CMM (0.0-0.2); BASOPHILS % (AUTO) 0.8 % (0.0-2.0); EOSINOPHILS % (AUTO) 1.9 % (0.0-6.0); HEMATOCRIT 45 % (39-51); HEMOGLOBIN 15.1 g/dL (13.5-17.5); LYMPHOCYTES # (AUTO) 3.2 /CMM (0.8-4.8); LYMPHOCYTES % (AUTO) 27.6 % (20.0-44.0); MEAN CORPUSCULAR HGB CONC 33 g/dl (31.0-36.0); MEAN CORPUSCULAR VOLUME 94 fL (80-96); MONOCYTES # (AUTO) 1.3 /CMM (0.1-1.30); MONOCYTES % (AUTO) 11.3 % (2.0-12.0); NEUTROPHILS # (AUTO) 6.8 /CMM (1.8-8.9); NEUTROPHILS % (AUTO) 58.4 % (43.0-81.0); PLATELET COUNT (AUTO) 253 /CMM (150-450); RED BLOOD CELL COUNT(AUTO) 4.81 MIL/uL (4.5-6.0); WHITE BLOOD COUNT (AUTO) 11.6 K/uL (4.3-11.0)
[2020-09-15] MEDS ORDERED: IOHEXOL-300 100 ML VIAL IV ONE (22:26)
[2020-09-15] MEDS ORDERED: IV NS 0.9% 250 ML IV ONE (22:27)
[2020-09-15 22:29] LABS: CALCIUM, SERUM 9.4 mg/dL (8.5-10.1); CREATININE 0.9 mg/dL (0.6-1.3); POTASSIUM 3.8 mmol/L (3.5-5.1)
[2020-09-15] MEDS ORDERED: ONDANSETRON HCL/PF 4 MG/2 ML VIAL IVP ONE (22:30)
[2020-09-15] MEDS ORDERED: KETOROLAC TROMETHAMINE INJ 30 MG/ML VIAL IV ONE (22:30)
[2020-09-15 22:36] LABS: ALBUMIN 4.1 g/dL (3.4-5.0); BILIRUBIN,DIRECT 0.1 mg/dL (0.0-0.2); BILIRUBIN,TOTAL 0.5 mg/dL (0.2-1.0); TOTAL PROTEIN, SERUM 7.8 g/dL (6.4-8.2)
--- NOTE | 2020-09-15 22:46 | NUR ---
PT BROUGHT BY RADIOLOGY TO CT
[2020-09-15] MEDS ORDERED: TRAMADOL HCL 50 MG TABLET PO ONE (23:30)
[2020-09-15] MEDS ORDERED: METOCLOPRAMIDE HCL 10 MG/2 ML VIAL IV ONE (23:30)
[2020-09-15] MEDS ORDERED: TRAMADOL HCL 50 MG TABLET ONE (23:47)
[2020-09-15] MEDS ORDERED: METOCLOPRAMIDE HCL 10 MG/2 ML VIAL ONE (23:47)
--- NOTE | 2020-09-16 00:13 | NUR ---
Patient discharged to home in stable condition. Written and verbal after care instructions given. Patient verbalizes understanding of instruction.IV removed. Catheter intact and site benign. Pressure and 4x4 applied to site. No bleeding noted.Pt ambulatory with a steady gait. Pt instructed not to drive, verbalized understanding and was picked up by father.
[2020-09-16 00:15] VITALS: BP 134/77
== END 2020-09-16 00:15 | disposition home or self-care (01) ==
LOC: ER 19:44
DX: K11.5 Sialolithiasis (principal); K21.9 Gastro-esophageal reflux disease without esophagitis; Z98.890 Other specified postprocedural states; Z88.5 Allergy status to narcotic agent; Z60.2 Problems related to living alone
CPT/HCPCS: 36415; 70487; 80048; 80076; 85025; 96374; 96375; 99285; J1885; J2405; J2765; J7050; Q9967

== ENCOUNTER 2022-03-04 11:56 | Emergency (ER) | payer OTHER ==
[~2022-03-04] VITALS: Ht 175.3 cm; Wt 54.4 kg
--- NOTE | 2022-03-04 13:03 | NUR ---
THE PATIENT IS TAKEN TO CT
--- NOTE | 2022-03-04 13:15 | NUR ---
The patient bibs for abdominal pain x 3 days, with black tarry stools - for 3 days. c/O N/V. Will continue to monitor the patient.
--- NOTE | 2022-03-04 13:24 | NUR ---
THE PATIENT IS BACK FROM CT
--- NOTE | 2022-03-04 13:30 | NUR ---
IV ESTABLIHSED L UPPER ARM 18G. LABS DRAWN AND COLLECTED AT BEDSIDE.
[2022-03-04] MEDS ORDERED: ONDANSETRON HCL/PF 4 MG/2 ML VIAL ONE (13:40)
[2022-03-04] MEDS ORDERED: KETOROLAC TROMETHAMINE INJ 30 MG/ML VIAL ONE (13:41)
[2022-03-04 13:46] LABS: BASOPHILS % (AUTO) 0.3 % (0.0-2.0); EOSINOPHILS % (AUTO) 1.3 % (0.0-6.0); HEMATOCRIT 43 % (39-51); HEMOGLOBIN 14.5 g/dL (13.5-17.5); LYMPHOCYTES # (AUTO) 1.4 K/uL (0.8-4.8); LYMPHOCYTES % (AUTO) 20.2 % (20.0-44.0); MEAN CORPUSCULAR HGB CONC 34 g/dl (31.0-36.0); MEAN CORPUSCULAR VOLUME 89 fL (80-96); MONOCYTES # (AUTO) 1.4 K/uL (0.1-1.30); MONOCYTES % (AUTO) 20.5 % (2.0-12.0); NEUTROPHILS % (AUTO) 57.7 % (43.0-81.0); PLATELET COUNT (AUTO) 201 K/uL (150-450); RED BLOOD CELL COUNT(AUTO) 4.78 MIL/uL (4.5-6.0); WHITE BLOOD COUNT (AUTO) 6.9 K/uL (4.3-11.0)
[2022-03-04] MEDS ORDERED: KETOROLAC TROMETHAMINE INJ 30 MG/ML VIAL IV ONE (14:00)
[2022-03-04] MEDS ORDERED: ONDANSETRON HCL/PF 4 MG/2 ML VIAL IVP ONE (14:00)
[2022-03-04] MEDS ORDERED: IV NS 0.9% 1,000 ML BAG IV ONE (14:00)
[2022-03-04 14:07] LABS: ALBUMIN 3.5 g/dL (3.4-5.0); BILIRUBIN,DIRECT 0.1 mg/dL (0.0-0.2); BILIRUBIN,TOTAL 0.5 mg/dL (0.2-1.0); CALCIUM, SERUM 8.6 mg/dL (8.5-10.1); CREATININE 0.9 mg/dL (0.6-1.3); POTASSIUM 3.8 mmol/L (3.5-5.1)
[2022-03-04] MEDS ORDERED: PRED50TA PO (14:29)
[2022-03-04] MEDS ORDERED: CIPR500T5 PO (14:29)
[2022-03-04] MEDS ORDERED: ONDA4TAB11 PO (14:29)
[2022-03-04] MEDS ORDERED: METR500T PO (14:29)
--- NOTE | 2022-03-04 14:33 | NUR ---
Patient discharged to home in stable condition. Written and verbal after care instructions given. Patient verbalizes understanding of instruction.
--- NOTE | 2022-03-04 14:33 | NUR ---
IV removed. Catheter intact and site benign. Pressure and 4x4 applied to site. No bleeding noted.
[2022-03-04 14:35] VITALS: BP 108/55
[2022-03-04 15:19] LABS: NEUTROPHILS % (MANUAL) 52 (42-76)
[2022-03-04 15:20] LABS: EOSINOPHILS % (MANUAL) 1 % (0-4); LYMPHOCYTES % (MANUAL) 30 % (16-48); METAMYELOCYTES % 1 % (0-0); MONOCYTES % (MANUAL) 16 % (0-11.0)
== END 2022-03-04 14:36 | disposition home or self-care (01) ==
LOC: ER 11:59
DX: R10.84 Generalized abdominal pain (principal); K50.10 Crohn's disease of large intestine without complications; K21.9 Gastro-esophageal reflux disease without esophagitis; F17.200 Nicotine dependence, unspecified, uncomplicated; Z85.858 Personal history of malignant neoplasm of other endocrine glands; Z88.8 Allergy status to other drugs, medicaments and biological substances; Z60.2 Problems related to living alone; Z79.899 Other long term (current) drug therapy
CPT/HCPCS: 36415; 74176; 80048; 80076; 83690; 85007; 85025; 85730; 86850; 96361; 96374; 96375; 99284; J1885; J2405; J7030